=== PATIENT | male | born 1995 | race Caucasian/White ===

== ENCOUNTER 2019-11-27 03:10 | Emergency (ER) | payer SELFPAY ==
[~2019-11-27] VITALS: Ht 167.6 cm; Wt 59.0 kg
--- NOTE | 2019-11-27 03:10 | NUR ---
0301- PT W/C ASSISTED TO ER BED 9
--- NOTE | 2019-11-27 03:10 | NUR ---
PT STATES THAT HE WAS DRINKING AND FELL; HIT HIS HEAD ON A SPEAKER. THERE IS AN INCH LONG LACERATION ON THE BACK OF THE HEAD; BLEEDING SMALL AMOUNT. NO LOC. DENIES DIZZINESS/ LIGHTHEADEDNESS OR HEADACHE. WALKED STEADILY INTO THE ROOM AND ABLE TO FOLLOW DIRECTIONS. UNSURE OF WHERE WE ARE NOW BUT AOX3. SPEACH SLURRED; FRIEND ACCOMPANYING HIM STATES THAT IS HIS BASELINE SPEECH. HAND GRASP EQUAL BILATTERALY. PERRLA; SLUGGISH ON RIGHT. VSS.
[2019-11-27 03:16] VITALS: BP 131/91
--- NOTE | 2019-11-27 03:20 | NUR ---
DR CASIANO ASSESSING PT.
--- NOTE | 2019-11-27 03:26 | NUR ---
Dr. Todd examining patient.
--- NOTE | 2019-11-27 03:30 | NUR ---
AICHA CHE CLEANING HEAD LAC.
--- NOTE | 2019-11-27 03:31 | NUR ---
MD IN ROOM; 2 CHRISTINA TO LAC. NO PAIN.
== END 2019-11-27 03:33 | disposition home or self-care (01) ==
LOC: MED 03:10
DX: S01.01XA Laceration without foreign body of scalp, initial encounter (principal); R03.0 Elevated blood-pressure reading, without diagnosis of hypertension; W19.XXXA Unspecified fall, initial encounter; Y93.89 Activity, other specified; Y92.89 Other specified places as the place of occurrence of the external cause; Y99.8 Other external cause status
CPT/HCPCS: 12001; 99282

== ENCOUNTER 2019-12-11 16:40 | Emergency (ER) | payer BC ==
[~2019-12-11] VITALS: Ht 165.1 cm; Wt 54.4 kg
[2019-12-11 16:43] VITALS: BP 127/78
--- NOTE | 2019-12-11 17:02 | NUR ---
CAME HERE FOR SUTURE REMOVAL AT [facility].AWAKE ,ALERT, AFIBRILE AMBULATORY WITH STEADY GAIT.CLEAN AND INTACT WOUND SITE WITH TWO CHRISTINA NOTED MED HX: DENIES
--- NOTE | 2019-12-11 17:04 | NUR ---
DR MANCUSO AT BEDSIDE. SUTURE REMOVE.
[2019-12-11 17:10] VITALS: BP 127/78
--- NOTE | 2019-12-11 17:10 | NUR ---
Patient discharged with v/s stable. Written and verbal after care instructions given and explained. Patient verbalized understanding. Ambulatory with steady gait. All questions addressed prior to discharge. Advised to follow up with PMD.
== END 2019-12-11 17:10 | disposition home or self-care (01) ==
LOC: MED 16:40
DX: S01.01XD Laceration without foreign body of scalp, subsequent encounter (principal); X58.XXXD Exposure to other specified factors, subsequent encounter
CPT/HCPCS: 99281